=== PATIENT | male | born 1945 | race Caucasian/White ===

== ENCOUNTER 2022-06-15 12:53 | Inpatient (IN) | payer MEDICARE ==
[~2022-06-15] VITALS: Ht 175.3 cm; Wt 92.4 kg
[2022-06-15 14:15] VITALS: BP 91/50
[2022-06-15] MEDS ORDERED: magnesium 4gm in 100ml NS 100 ML IV PRN (15:30)
[2022-06-15] MEDS ORDERED: magnesium Cl slow-release 64mg tablet PO PRN (15:30)
[2022-06-15] MEDS ORDERED: acetaminophen 325mg tablet PO PRN ×2 (15:30)
[2022-06-15] MEDS ORDERED: magnesium 2GM in 50ml NS 50 ML IV PRN (15:30)
[2022-06-15] MEDS ORDERED: magnesium hydroxide 30ml (MOM) UD suspension PO PRN (15:30)
[2022-06-15] MEDS ORDERED: potassium CL 10mEq/100ml bag 100 ML IV PRN (15:30)
[2022-06-15] MEDS ORDERED: ondansetron/PF 4mg/2ml inj IV PRN (15:30)
[2022-06-15] MEDS ORDERED: HYDROcodone/acetaminophen 5mg/325mg tablet PO PRN (15:30)
[2022-06-15] MEDS ORDERED: POTASSIUM BICARB 20meq eff tab 20 MEQ TABLET.EFF PO PRN ×2 (15:30)
[2022-06-15] MEDS ORDERED: morphine 2 MG/ML inj. syringe IV PRN (15:30)
[2022-06-15] MEDS ORDERED: HEPARIN SOD,PORK IN 0.45% NACL 250 ML IV SCH (15:35)
[2022-06-15] MEDS ORDERED: heparin 10,000 units/1 ML INJ IV ONE (15:35)
[2022-06-15] MEDS ORDERED: heparin 10,000 units/1 ML INJ IV PRN (15:35)
[2022-06-15] MEDS ORDERED: BACL10TA2 PO (17:30)
[2022-06-15] MEDS ORDERED: BENA20TA83 PO (17:30)
[2022-06-15] MEDS ORDERED: MELO-102 PO (17:30)
[2022-06-15] MEDS ORDERED: HYDR25TA4 PO (17:30)
[2022-06-15] MEDS ORDERED: LORA-268 PO (17:30)
[2022-06-15] MEDS ORDERED: FLUO40CA PO (17:30)
[2022-06-15] MEDS ORDERED: CARB1TAB60 PO (17:30)
[2022-06-15 18:00] VITALS: BP 111/59
[2022-06-15] MEDS: K and/or MAG REPLACEMENT MC SCH (20:00)
[2022-06-15] MEDS ORDERED: temazepam 15mg capsule PO PRN (21:00)
[2022-06-15] MEDS: furosemide 20 MG/2 ML vial IV SCH (22:05)
[2022-06-15] MEDS: carbidoba-levodopa 25-100mg tablet PO SCH (22:05)
[2022-06-16 02:00] VITALS: BP 117/66
[2022-06-16 06:24] LABS: BASOPHILS # (AUTO) 0.1 X10'3 (0-0.2); EOSINOPHILS # (AUTO) 0.2 X10'3 (0-0.9); EOSINOPHILS % (AUTO) 3.5 % (0-6); HEMOGLOBIN 14.9 g/dl (14.0-17.9); LYMPHOCYTES # (AUTO) 1.6 X10'3 (1.1-4.8); MEAN CORPUSCULAR HEMOGLOBIN 29.4 PG (27.0-31.0); MEAN CORPUSCULAR VOLUME 89.1 FL (78-98); MONOCYTES # (AUTO) 0.8 X10'3 (0-0.9); MONOCYTES % (AUTO) 11.2 % (2-12); NEUTROPHILS # (AUTO) 4.2 X10'3 (1.8-7.7); NEUTROPHILS % (AUTO) 61.3 % (42-75); PLATELET COUNT 149 X10'3 (140-440); RED BLOOD COUNT 5.05 X10'6 (4.70-6.10); WHITE BLOOD COUNT 6.9 X10'3 (4.5-11.0)
[2022-06-16 06:44] LABS: ALANINE AMINOTRANSFERASE 8 U/L (12-78); ALBUMIN 3.6 G/DL (3.4-5.0); ALBUMIN/GLOBULIN RATIO 1.2 (1.1-1.5); ALKALINE PHOSPHATASE 107 IU/L (46-116); ANION GAP 6 (8-16); ASPARTATE AMINO TRANSFERASE 20 U/L (10-37); BILIRUBIN,TOTAL 0.6 MG/DL (0.1-1.0); BLOOD UREA NITROGEN 29 MG/DL (7-18); BUN/CREATININE RATIO 31.5 (5.4-32.0); CALCIUM 8.7 MG/DL (8.5-10.1); CHLORIDE 103 MMOL/L (99-107); CREATININE 0.92 MG/DL (0.60-1.10); GLUCOSE 91 MG/DL (70-104); POTASSIUM 3.9 MMOL/L (3.5-5.1); SODIUM 142 MMOL/L (135-145); TOTAL CARBON DIOXIDE 33.1 MMOL/L (24-32); TOTAL PROTEIN 6.7 G/DL (6.4-8.2); eGFR 80 ML/MIN
[2022-06-16 07:00] VITALS: BP 142/75
[2022-06-16] MEDS: FLUoxetine 20mg capsule PO SCH (07:59)
[2022-06-16] MEDS: furosemide 20 MG/2 ML vial IV SCH ×2 (07:59→19:36)
[2022-06-16] MEDS: metoprolol succinate 25mg (24-HOUR) SR. Tablet PO SCH (07:59)
[2022-06-16] MEDS: carbidoba-levodopa 25-100mg tablet PO SCH ×2 (08:00→19:35)
[2022-06-16] MEDS: K and/or MAG REPLACEMENT MC SCH ×2 (08:00→19:17)
[2022-06-16] MEDS: spironolactone 25 MG tablet PO SCH (08:00)
[2022-06-16] MEDS ORDERED: IODIXANOL 320 MG/ML INFUS..BTL 100ML IV ONE (08:13)
[2022-06-16 15:00] VITALS: BP 145/72
[2022-06-16 15:32] LABS: ABG BASE EXCESS 5.5 mmol/L (-2.0-2.0); ABG HCO3 30.5 mmol/L (22.0-26.0); ABG OXYGEN SATURATION 94.9 % (94-97); ABG PO2 (T) 68.3 mmHg (75.0-100.0); ALLEN'S TEST POSITIVE; FCOHb 0.5 % (0.0-3.9); FMetHb 0.3 % (0.0-1.5); FO2Hb 94.1 % (94-97); TOTAL HEMOGLOBIN 17.2 G/dl (14.0-18.0)
[2022-06-16 18:00] VITALS: BP 144/89
[2022-06-16 22:00] VITALS: BP 138/82
[2022-06-17 02:00] VITALS: BP 146/79
[2022-06-17 07:21] LABS: BASOPHILS # (AUTO) 0.1 X10'3 (0-0.2); EOSINOPHILS # (AUTO) 0.1 X10'3 (0-0.9); EOSINOPHILS % (AUTO) 1.7 % (0-6); HEMATOCRIT 46.8 % (42.0-52.0); HEMOGLOBIN 15.7 g/dl (14.0-17.9); LYMPHOCYTES # (AUTO) 1.3 X10'3 (1.1-4.8); LYMPHOCYTES % (AUTO) 17.3 % (21-51); MEAN CORPUSCULAR HEMOGLOBIN 29.6 PG (27.0-31.0); MEAN CORPUSCULAR HGB CONC 33.5 g/dL (33.0-36.5); MEAN CORPUSCULAR VOLUME 88.4 FL (78-98); MEAN PLATELET VOLUME 10.1 FL (7.4-10.4); MONOCYTES # (AUTO) 0.7 X10'3 (0-0.9); MONOCYTES % (AUTO) 9.2 % (2-12); NEUTROPHILS # (AUTO) 5.4 X10'3 (1.8-7.7); NEUTROPHILS % (AUTO) 70.8 % (42-75); PLATELET COUNT 149 X10'3 (140-440); RED BLOOD COUNT 5.29 X10'6 (4.70-6.10); RED CELL DISTRIBUTION WIDTH 15.4 % (11.5-14.5); WHITE BLOOD COUNT 7.6 X10'3 (4.5-11.0)
[2022-06-17 07:29] LABS: APTT 32 SECONDS (22-32)
[2022-06-17 07:43] LABS: ALANINE AMINOTRANSFERASE 16 U/L (12-78); ALBUMIN 3.7 G/DL (3.4-5.0); ALBUMIN/GLOBULIN RATIO 1.1 (1.1-1.5); ALKALINE PHOSPHATASE 115 IU/L (46-116); ANION GAP 9 (8-16); ASPARTATE AMINO TRANSFERASE 33 U/L (10-37); BILIRUBIN,TOTAL 0.8 MG/DL (0.1-1.0); BLOOD UREA NITROGEN 27 MG/DL (7-18); CHLORIDE 97 MMOL/L (99-107); CREATININE 0.93 MG/DL (0.60-1.10); GLUCOSE 85 MG/DL (70-104); POTASSIUM 3.8 MMOL/L (3.5-5.1); SODIUM 136 MMOL/L (135-145); eGFR 79 ML/MIN
[2022-06-17] MEDS: K and/or MAG REPLACEMENT MC SCH ×2 (08:00→20:00)
[2022-06-17] MEDS: metoprolol succinate 25mg (24-HOUR) SR. Tablet PO SCH (08:00)
[2022-06-17] MEDS: spironolactone 25 MG tablet PO SCH (08:30)
[2022-06-17] MEDS: furosemide 20 MG/2 ML vial IV SCH ×2 (09:13→19:14)
[2022-06-17] MEDS: carbidoba-levodopa 25-100mg tablet PO SCH ×2 (09:13→19:14)
[2022-06-17] MEDS: FLUoxetine 20mg capsule PO SCH (09:13)
[2022-06-17] MEDS ORDERED: midazolam 1 mg/ML 2ml injection ONE (11:16)
[2022-06-17] MEDS ORDERED: fentaNYL/PF 50MCG/1 ML 2ML syringe ONE (11:16)
[2022-06-17] MEDS ORDERED: iohexol 350MG/ML 100ml bottle IV ONE ×2 (11:16→12:08)
[2022-06-17] MEDS ORDERED: LIDOcaine 1% 30ml preserv. free vial ONE (11:16)
[2022-06-17] MEDS ORDERED: phenylephrine 10mg/ml inj. ONE (11:47)
[2022-06-17] MEDS ORDERED: epiNEPHrine 1 mg/ml inj ONE (11:47)
[2022-06-17] MEDS ORDERED: heparin 1,000unit/ml 10ml vial 10 ML ONE (11:59)
[2022-06-17 18:00] VITALS: BP 142/70
[2022-06-17 22:00] VITALS: BP 112/60
[2022-06-18 02:00] VITALS: BP 115/56
[2022-06-18 06:00] VITALS: BP 111/60
[2022-06-18] MEDS ORDERED: ASPI-1265 PO (07:25)
[2022-06-18 08:01] LABS: BASOPHILS % (AUTO) 0.5 % (0-1); EOSINOPHILS # (AUTO) 0.1 X10'3 (0-0.9); EOSINOPHILS % (AUTO) 1.4 % (0-6); HEMATOCRIT 49.7 % (42.0-52.0); HEMOGLOBIN 16.7 g/dl (14.0-17.9); LYMPHOCYTES # (AUTO) 1.3 X10'3 (1.1-4.8); LYMPHOCYTES % (AUTO) 15.6 % (21-51); MEAN CORPUSCULAR HGB CONC 33.5 g/dL (33.0-36.5); MEAN CORPUSCULAR VOLUME 89.3 FL (78-98); MONOCYTES # (AUTO) 0.8 X10'3 (0-0.9); MONOCYTES % (AUTO) 9.6 % (2-12); NEUTROPHILS # (AUTO) 6.3 X10'3 (1.8-7.7); NEUTROPHILS % (AUTO) 72.9 % (42-75); PLATELET COUNT 152 X10'3 (140-440); RED BLOOD COUNT 5.56 X10'6 (4.70-6.10); RED CELL DISTRIBUTION WIDTH 15.6 % (11.5-14.5); WHITE BLOOD COUNT 8.6 X10'3 (4.5-11.0)
[2022-06-18] MEDS ORDERED: aspirin 81mg tab.chew PO SCH (08:30)
[2022-06-18 08:56] LABS: ALANINE AMINOTRANSFERASE 20 U/L (12-78); ALBUMIN 3.7 G/DL (3.4-5.0); ALBUMIN/GLOBULIN RATIO 1.1 (1.1-1.5); ALKALINE PHOSPHATASE 122 IU/L (46-116); ANION GAP 10 (8-16); ASPARTATE AMINO TRANSFERASE 29 U/L (10-37); BILIRUBIN,TOTAL 1.2 MG/DL (0.1-1.0); BLOOD UREA NITROGEN 33 MG/DL (7-18); CALCIUM 8.7 MG/DL (8.5-10.1); CHLORIDE 97 MMOL/L (99-107); CREATININE 0.97 MG/DL (0.60-1.10); GLUCOSE 87 MG/DL (70-104); POTASSIUM 4.1 MMOL/L (3.5-5.1); SODIUM 135 MMOL/L (135-145); TOTAL CARBON DIOXIDE 28.2 MMOL/L (24-32); TOTAL PROTEIN 7.2 G/DL (6.4-8.2); eGFR 75 ML/MIN
[2022-06-18] MEDS: K and/or MAG REPLACEMENT MC SCH (09:12)
[2022-06-18] MEDS ORDERED: METO-395 PO (09:40)
[2022-06-18] MEDS ORDERED: SACU1TAB PO (09:40)
[2022-06-18] MEDS ORDERED: SPIR25TA PO (09:40)
[2022-06-18] MEDS: FLUoxetine 20mg capsule PO SCH (09:41)
[2022-06-18] MEDS: carbidoba-levodopa 25-100mg tablet PO SCH (09:41)
[2022-06-18] MEDS: spironolactone 25 MG tablet PO SCH (09:41)
[2022-06-18] MEDS: metoprolol succinate 25mg (24-HOUR) SR. Tablet PO SCH (09:41)
[2022-06-18] MEDS: furosemide 20 MG/2 ML vial IV SCH (09:42)
[2022-06-18 11:00] VITALS: BP 112/55
== END 2022-06-18 15:02 | disposition home or self-care (01) | DRG 219 ==
LOC: PCU 3S 14:12
PROVIDERS: ADMIT Internal Medicine; ATTEND Internal Medicine
PROC: BW251ZZ Computerized Tomography (CT Scan) of Chest, Abdomen and Pelvis using Low Osmolar Contrast (ICD-10-PCS; 2022-06-16)
PROC: 02Q Heart and Great Vessels, Repair (ICD-10-PCS; principal; 2022-06-17)
PROC: B41F1ZZ Fluoroscopy of Right Lower Extremity Arteries using Low Osmolar Contrast (ICD-10-PCS; 2022-06-17)
DX: I35.0 Nonrheumatic aortic (valve) stenosis (principal); I50.23 Acute on chronic systolic (congestive) heart failure; I42.9 Cardiomyopathy, unspecified; I11.0 Hypertensive heart disease with heart failure; E78.00 Pure hypercholesterolemia, unspecified; G20 Parkinson's disease; M54.2 Cervicalgia; I25.10 Atherosclerotic heart disease of native coronary artery without angina pectoris; N40.0 Benign prostatic hyperplasia without lower urinary tract symptoms; F32.A Depression, unspecified; F41.9 Anxiety disorder, unspecified; G89.29 Other chronic pain; K59.09 Other constipation; M54.50 Low back pain, unspecified; Z85.828 Personal history of other malignant neoplasm of skin
CPT/HCPCS: 33361; 36415; 36600; 71275; 74174; 76937; 80053; 82803; 85018; 85025; 85347; 85610; 85730; 86885; 86900; 86901; 86920; 87081; 92986; 93005; 93880; 94010; 97116; 97161; 97530; 99152; 99153; A4349; A4620; A6258; A6449; C1756; C1760; C1769; C1894; G0378; J0171; J1644; J1940; J2250; J2270; J2370; J2405; J3010; J3490; J7030; Q9967

== ENCOUNTER 2022-07-22 08:24 | Inpatient (IN) | payer MEDICARE ==
[2022-07-19 11:18] LABS: BASOPHILS # (AUTO) 0.1 X10'3 (0-0.2); BASOPHILS % (AUTO) 0.7 % (0-1); EOSINOPHILS # (AUTO) 0.1 X10'3 (0-0.9); EOSINOPHILS % (AUTO) 1.6 % (0-6); LYMPHOCYTES # (AUTO) 1.5 X10'3 (1.1-4.8); LYMPHOCYTES % (AUTO) 15.6 % (21-51); MEAN CORPUSCULAR HEMOGLOBIN 29.9 PG (27.0-31.0); MEAN CORPUSCULAR HGB CONC 33.6 g/dL (33.0-36.5); MEAN CORPUSCULAR VOLUME 88.9 FL (78-98); MEAN PLATELET VOLUME 8.9 FL (7.4-10.4); MONOCYTES # (AUTO) 0.7 X10'3 (0-0.9); MONOCYTES % (AUTO) 7.1 % (2-12); NEUTROPHILS # (AUTO) 7.2 X10'3 (1.8-7.7); PRE OP HEMATOCRIT 48.2 % (42.0-52.0); PRE OP HEMOGLOBIN 16.2 g/dL (14.0-17.9); PRE OP PLATELET COUNT 155 X10'3 (140-440); RED BLOOD COUNT 5.42 X10'6 (4.70-6.10); RED CELL DISTRIBUTION WIDTH 15.7 % (11.5-14.5)
[2022-07-19 11:29] LABS: PRE OP INR 1.1 INR; PRE OP PROTIME 11.5 SECONDS (9.0-12.0)
[2022-07-19 11:33] LABS: ALBUMIN 3.6 G/DL (3.4-5.0); ALKALINE PHOSPHATASE 124 IU/L (46-116); BLOOD UREA NITROGEN 19 MG/DL (7-18); BUN/CREATININE RATIO 17.8 (5.4-32.0); CHLORIDE 100 MMOL/L (99-107); CREATININE 1.07 MG/DL (0.60-1.10); PRE OP ALT 11 U/L (30-65); PRE OP ANION GAP 8 (8-16); PRE OP AST 20 U/L (10-37); PRE OP BILIRUB, TOTAL 0.6 MG/DL (0.0-1.0); PRE OP GLUCOSE 128 MG/DL (70-104); PRE OP POTASSIUM 4.3 MMOL/L (3.4-5.1); PRE OP SODIUM 136 MMOL/L (135-145); TOTAL CARBON DIOXIDE 28.4 MMOL/L (24-32); TOTAL PROTEIN 7.2 G/DL (6.4-8.2); eGFR 67 ML/MIN
[~2022-07-22] VITALS: Ht 175.3 cm; Wt 85.6 kg
[2022-07-22] VITALS (21 sets, daily range): BP systolic 99–146; BP diastolic 56–81
[~2022-07-22 08:24] MED LIST: BACL10TA2 PO; CARB1TAB60 PO; DOCUMENT DATE & TIME OF BETA-BLOCKER PO ONE; FLUO40CA PO; LORA-268 PO; MELO-102 PO; METO-395 PO; SACU1TAB PO; SPIR25TA5 PO; aspirin 325mg tablet PO ONE; ceFAZolin inj. 2,000 MG in dextrose 5%-water 100 ML IV ONE; famotidine 20mg tablet PO ONE; nitroPRUSSIDE (NIPRIDE) (200MCG/ML) 100ML Drip IV SCH; ondansetron/PF 4mg/2ml inj IV PRN; phenylephrine inj 50 MG in normal saline 250ml IV solN IV SCH; protamine sulfate 10mg/ml inj. ONE; ringers solution, lacted 1,000 ML IV SCH; vancomycin 1,500 MG in NS 300ml IV soln IV ONE
[2022-07-22] MEDS ORDERED: protamine sulfate 10mg/ml inj. ONE (10:22)
[2022-07-22 11:45] LABS: CLARITY,URINE CLEAR (Clear); COLOR,URINE YELLOW (Yellow); GLUCOSE, URINE NEGATIVE (Neg); KETONES,URINE 15 mg/dl (Neg); LEUKOCYTE ESTERASE ,URINE NEGATIVE (Neg); NITRITES, URINE NEGATIVE (Neg); OCCULT BLOOD,URINE TRACE-INTACT (Neg); PROTEIN,URINE NEGATIVE (Neg); UROBILINOGEN,URINE 0.2 E.U/dL (0.2-1.0)
[2022-07-22 11:47] LABS: UA COLLECTION TYPE URINAL
[2022-07-22 12:04] LABS: BACTERIA,URINE NONE SEEN /HPF (Neg); MUCUS STRANDS MODERATE /LPF (Neg); RBC,URINE NONE SEEN /HPF (0-2); SQUAMOUS EPITHELIAL CELL,UR FEW /LPF (FEW); WBC,URINE 0-4 /HPF (0-4)
[2022-07-22] MEDS ORDERED: iohexol 350 MG/ML 50ML vial IV ONE (13:07)
[2022-07-22] MEDS ORDERED: iohexol 350MG/ML 100ml bottle IV ONE (13:07)
[2022-07-22] MEDS ORDERED: heparin 1,000 UNITS/NS 500ml 1,500 ML ONE (13:07)
[2022-07-22] MEDS ORDERED: LIDOcaine 1% 30ml preserv. free vial ONE (13:09)
[2022-07-22] MEDS ORDERED: fentaNYL/PF 50MCG/1 ML 2ML syringe ONE (13:24)
[2022-07-22] MEDS ORDERED: midazolam 1 mg/ML 2ml injection ONE (13:24)
[2022-07-22] MEDS ORDERED: baclofen 10mg tablet PO PRN (13:30)
[2022-07-22] MEDS ORDERED: pantoprazole 40mg Tablet.DR PO PRN (14:10)
[2022-07-22] MEDS ORDERED: magnesium 4gm in 100ml NS 100 ML IV PRN (14:10)
[2022-07-22] MEDS ORDERED: potassium Cl 20 mEq SR tablet PO PRN (14:10)
[2022-07-22] MEDS ORDERED: potassium Cl 20mEq/100mL bag 100 ML IV PRN (14:10)
[2022-07-22] MEDS ORDERED: potassium Cl 40MEQ/1/2NS 520ml 520 ML IV PRN (14:10)
[2022-07-22] MEDS ORDERED: hydrALAZINE 20mg/ml inj. IV PRN ×2 (14:10→14:30)
[2022-07-22] MEDS ORDERED: ondansetron/PF 4mg/2ml inj IV PRN ×2 (14:10→14:30)
[2022-07-22] MEDS ORDERED: labetalol 20mg/4ml (5mg/ml) syringe IV PRN ×2 (14:10→14:30)
[2022-07-22] MEDS ORDERED: potassium CL 10mEq/100ml bag 100 ML IV PRN (14:10)
[2022-07-22] MEDS ORDERED: magnesium 2GM in 50ml NS 50 ML IV PRN (14:10)
[2022-07-22] MEDS ORDERED: acetaminophen 325mg tablet PO PRN (14:10)
[2022-07-22] MEDS ORDERED: docusate sod 100mg capsule PO PRN (14:10)
[2022-07-22] MEDS ORDERED: potassium Cl 40MEQ/270ML bag 250 ML IV PRN (14:10)
[2022-07-22] MEDS ORDERED: diphenhydrAMINE 25mg capsule PO PRN (14:10)
[2022-07-22] MEDS ORDERED: proCHLORperazine 10 MG/2 ml inj IV PRN (14:10)
[2022-07-22] MEDS ORDERED: ALPRAZolam 0.25mg tablet PO PRN (14:10)
[2022-07-22] MEDS ORDERED: propofol inj 20 ML IV ONE ×3 (14:23)
[2022-07-22] MEDS ORDERED: ePHEDrine 50MG/ML INJ. ONE (14:24)
[2022-07-22] MEDS ORDERED: heparin 1,000unit/ml 10ml vial 10 ML ONE (14:24)
[2022-07-22] MEDS ORDERED: 0.9 % SODIUM CHLORIDE 10 ML VIAL ONE (14:24)
[2022-07-22] MEDS ORDERED: meperidine/PF 25mg/ml syringe IV PRN (14:30)
[2022-07-22] MEDS ORDERED: HYDROmorphone/PF 0.2 MG/ML SYRINGE IV PRN (14:30)
[2022-07-22] MEDS ORDERED: morphine 2 MG/ML inj. syringe IV PRN (14:30)
[2022-07-22] MEDS ORDERED: acetaminophen 1,000mg/100ml IV 100 ML IV PRN (14:30)
[2022-07-22] MEDS ORDERED: ringers solution, lacted 1,000 ML IV SCH (14:30)
--- NOTE | 2022-07-22 14:45 | NUR ---
Received from OR via HOSPITAL BED, accompanied by Anesthesiologist DR RODAS and report given by Anesthesiolgist. PT IS GROGGY BUT WAKES TO VERBAL STIMULI, ANSWERS QUESTIONS APPROPRIATELY. PT PLACED ON BEDSIDE MONITOR, VSS. PT IS PT IS ABLE TO HOOK, NEURO IS INTACT. 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 PT HAS 18G PIV TO LEFT HAND WITH LR INFUSING ORDERED. PT ARRIVED TI VERONICA AND NIPRIDE RUNNING, VERONICA HAS BEEN TITRATED OFF, NIPRIDE HAS BEEN TITRATED DOWN. PT HAD DRSG TO BILAT GROIN, BOTH ARE CDI. NO S/S OF HEMATOMA. PT HAS BILAT PALPABLE DORSALIS PEDIS PULSES. PT DENIES PAIN AT THIS TIME. WILL CONTINUE TO ASSESS
--- NOTE | 2022-07-22 16:50 | NUR ---
PATIENT HAS MET ALL CRITERIA FOR TRANSFER TO THE PCU FLOOR. VSS. DRESSINGS INTACT. BED LOW, CALL LIGHT PRESENT AND 2 RAILS UP. RN PRESENT TO ACCEPT CARE OF PATIENT AND REPORT HAS BEEN CALLED JOSE CHIU. ALL QUESTIONS ANSWERED TO ACCEPTING RN.
[2022-07-22] MEDS: normal saline 1000ml 1,000 ML IV SCH (17:30)
[2022-07-22] MEDS: sod chloride 0.9% 10ml flush syringe IV SCH (17:36)
--- NOTE | 2022-07-22 18:02 | NUR ---
pt arrived to unit at 1615. vss. bilat groins are c/d/i. no edema or hematoma. positive pedal pulses. no complaints of pain. Continued this assessment every 15 min x4, then every 30 min. Pt continues to be stable. vss. no complaints of pain. will continue to monitor.l
--- NOTE | 2022-07-22 18:54 | NUR ---
Patient in room U 3019L. I have received report from Bhargavi CHIU and had the opportunity to ask questions and assume patient care. Pt is sitting high fowlers in bed finishing eating dinner. Pt stated he just finished talking with MD about procedure and care. Pt declines any c/o pain. Pt on R/A no s/s of distress. 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 Addendum: 07/22/22 at 1900 by Camilla Moore RN Pt is lating flat on bed. Not eating dinner.
[2022-07-22] MEDS: ceFAZolin 1GM/D5W- ADD-VANTAGE 50 ML IV SCH (19:27)
[2022-07-22] MEDS: carbidoba-levodopa 25-100mg tablet PO SCH (20:53)
[2022-07-22] MEDS: vancomycin/NS 1 GM ADD-VANTAGE 250 ML IV SCH (20:53)
[2022-07-22] MEDS: sacubitril/valsartan 24mg-26mg tablet PO SCH (20:53)
[2022-07-22] MEDS ORDERED: LORazepam 0.5 MG tablet PO SCH (21:00)
[2022-07-23] VITALS: BP 113/58
[2022-07-23] MEDS: normal saline 1000ml 1,000 ML IV SCH (00:10)
[2022-07-23 04:00] VITALS: BP 140/68
--- NOTE | 2022-07-23 06:25 | NUR ---
Problems reprioritized. Patient report given, questions answered & plan of care reviewed with Eboni CHIU.
[2022-07-23 07:01] LABS: BASOPHILS % (AUTO) 0.6 % (0-1); EOSINOPHILS # (AUTO) 0.2 X10'3 (0-0.9); EOSINOPHILS % (AUTO) 2.4 % (0-6); HEMATOCRIT 43.9 % (42.0-52.0); HEMOGLOBIN 14.6 g/dl (14.0-17.9); LYMPHOCYTES # (AUTO) 1.1 X10'3 (1.1-4.8); MEAN CORPUSCULAR HGB CONC 33.2 g/dL (33.0-36.5); MEAN CORPUSCULAR VOLUME 90.4 FL (78-98); MEAN PLATELET VOLUME 9.6 FL (7.4-10.4); MONOCYTES # (AUTO) 0.6 X10'3 (0-0.9); MONOCYTES % (AUTO) 8.4 % (2-12); NEUTROPHILS # (AUTO) 5.1 X10'3 (1.8-7.7); NEUTROPHILS % (AUTO) 72.6 % (42-75); PLATELET COUNT 123 X10'3 (140-440); RED BLOOD COUNT 4.85 X10'6 (4.70-6.10); RED CELL DISTRIBUTION WIDTH 15.9 % (11.5-14.5); WHITE BLOOD COUNT 7.1 X10'3 (4.5-11.0)
[2022-07-23 07:51] LABS: ALANINE AMINOTRANSFERASE 11 U/L (12-78); ALBUMIN 3.1 G/DL (3.4-5.0); ALKALINE PHOSPHATASE 113 IU/L (46-116); ANION GAP 14 (8-16); ASPARTATE AMINO TRANSFERASE 17 U/L (10-37); BILIRUBIN,TOTAL 0.7 MG/DL (0.1-1.0); BLOOD UREA NITROGEN 14 MG/DL (7-18); BUN/CREATININE RATIO 16.7 (5.4-32.0); CALCIUM 8.4 MG/DL (8.5-10.1); CHLORIDE 102 MMOL/L (99-107); CREATININE 0.84 MG/DL (0.60-1.10); GLUCOSE 65 MG/DL (70-104); POTASSIUM 4.2 MMOL/L (3.5-5.1); SODIUM 138 MMOL/L (135-145); TOTAL CARBON DIOXIDE 21.7 MMOL/L (24-32); TOTAL PROTEIN 6.1 G/DL (6.4-8.2); eGFR 89 ML/MIN
[2022-07-23] MEDS ORDERED: MELOXICAM 7.5 MG TABLET PO SCH (08:00)
[2022-07-23] MEDS ORDERED: spironolactone 25 MG tablet PO SCH (08:00)
[2022-07-23] MEDS ORDERED: FLUoxetine 20mg capsule PO SCH (08:00)
[2022-07-23] MEDS ORDERED: metoprolol succinate 25mg (24-HOUR) SR. Tablet PO SCH (08:00)
[2022-07-23 08:06] VITALS: BP_SYST 128
[2022-07-23] MEDS: vancomycin/NS 1 GM ADD-VANTAGE 250 ML IV SCH (08:07)
[2022-07-23] MEDS: carbidoba-levodopa 25-100mg tablet PO SCH (08:07)
[2022-07-23] MEDS: ceFAZolin 1GM/D5W- ADD-VANTAGE 50 ML IV SCH ×2 (08:07)
[2022-07-23] MEDS: sacubitril/valsartan 24mg-26mg tablet PO SCH (08:07)
[2022-07-23] MEDS: sod chloride 0.9% 10ml flush syringe IV SCH ×2 (08:09)
[2022-07-23] MEDS ORDERED: ASPI-1265 PO (09:05)
--- NOTE | 2022-07-23 12:50 | NUR ---
pt aox4, vss, on RA. Had scheduled TAVR. Pt to d/c home with cardiac rehab and prescription of 81mg daily asa. Pt's IVs removed. Last vs 95% ra, 111/45, 18rr, 76hr. Addendum: 07/23/22 at 1253 by Eboni Richardson RN TAVR card given to pt . Addendum: 07/23/22 at 1856 by Eboni Richardson RN groin site dressings CDI, no s/s of hematoma, no bruising, minimal tenderness, no redness or warmth, no swelling noted upon discharge.
== END 2022-07-23 12:38 | disposition home or self-care (01) | DRG 267 ==
LOC: PAS IN 08:24 → PCU 3S 16:43
PROVIDERS: ADMIT Internal Medicine Cardiovascular Disease; ATTEND Internal Medicine Cardiovascular Disease
PROC: B41D1ZZ Fluoroscopy of Aorta and Bilateral Lower Extremity Arteries using Low Osmolar Contrast (ICD-10-PCS; 2022-07-22)
PROC: 02RF38Z Replacement of Aortic Valve with Zooplastic Tissue, Percutaneous Approach (ICD-10-PCS; principal; 2022-07-22 13:17)
DX: I35.0 Nonrheumatic aortic (valve) stenosis (principal); Z00.6 Encounter for examination for normal comparison and control in clinical research program; I50.22 Chronic systolic (congestive) heart failure; G20 Parkinson's disease; I11.0 Hypertensive heart disease with heart failure
CPT/HCPCS: 33361; 36415; 71045; 71046; 76937; 80053; 81001; 82948; 83735; 83880; 85025; 85347; 85610; 85730; 86885; 86900; 86901; 86920; 87081; 93005; 93308; A4618; A6258; A6449; C1756; C1760; C1769; C1892; C1894; G0378; J0690; J1644; J2250; J2370; J2704; J2720; J3010; J3370; J3490; J7030; J7040; J7050; J7060; J7120; Q9967